=== PATIENT | male | born 1955 ===

== ENCOUNTER → 2020-09-17 | Day surgery (SDC) | payer BC ==
[~2020-09-17] MED LIST: ASPIRIN EC81 MG PO; CARDIZEM CD240 MG PO; CELEBREX200 MG PO; CINNAMON PO; DAILY VALUE1 EACH PO; DIOVAN160 MG PO; HYDROCODON-ACE1 EAC4 PO; LOVAZA1 GM PO; ZETIA10 MG PO
[2020-09-17 08:00] LABS: HEMOGLOBIN 14.4 gm/dl (14.0-17.5); RED BLOOD COUNT 4.35 M/UL (4.20-5.50); WHITE BLOOD COUNT 2.8 K/UL (4.5-11.0)
[2020-09-17 08:20] LABS: BUN/CREATININE RATIO 9 (0-10)
== END | disposition home or self-care (01) ==
LOC: OR 09-10 09:00
PROVIDERS: Orthopaedic Surgery
PROC: 3E0T3GC Introduction of Other Therapeutic Substance into Peripheral Nerves and Plexi, Percutaneous Approach (ICD-10-PCS; 2020-09-17)
PROC: 0MB30ZZ Excision of Right Elbow Bursa and Ligament, Open Approach (ICD-10-PCS; principal; 2020-09-17 09:00)
DX: M70.21 Olecranon bursitis, right elbow (principal); E78.5 Hyperlipidemia, unspecified; I10 Essential (primary) hypertension; I48.91 Unspecified atrial fibrillation; G47.30 Sleep apnea, unspecified; G89.18 Other acute postprocedural pain; Z20.822 Contact with and (suspected) exposure to COVID-19; Z79.82 Long term (current) use of aspirin; Z79.1 Long term (current) use of non-steroidal anti-inflammatories (NSAID); Z79.899 Other long term (current) drug therapy; Z88.2 Allergy status to sulfonamides; Z88.8 Allergy status to other drugs, medicaments and biological substances
CPT/HCPCS: 36415; 80048; 85025; 93005; J0592; J0690; J1100; J2001; J2250; J2704; J2795; J3010; J7120